=== PATIENT | male | born 2000 | race Caucasian/White ===

== ENCOUNTER 2021-02-10 23:35 | Emergency (ER) | payer SELFPAY ==
[~2021-02-10] VITALS: Ht 182.9 cm; Wt 111.1 kg
== END 2021-02-11 01:52 | disposition home or self-care (01) ==
LOC: ER 23:40
DX: R07.9 Chest pain, unspecified (principal)
CPT/HCPCS: 71045; 93005; 99282; U0002

== ENCOUNTER 2021-05-05 23:07 | Emergency (ER) | payer BC ==
[~2021-05-05] VITALS: Ht 182.9 cm; Wt 111.1 kg
[2021-05-05] MEDS ORDERED: LIDOCAINE HCL 1% LOCAL INJ 20 ML VIAL INJ STA (23:12)
[2021-05-05] MEDS ORDERED: IBUPROFEN 600 MG TAB PO STA (23:15)
[2021-05-05] MEDS ORDERED: HYDROCODONE/APAP 5MG-325MG TAB PO STA (23:54)
[2021-05-05] MEDS ORDERED: ACETAMINOPHEN-1 EAC4 PO (23:57)
== END 2021-05-06 00:51 | disposition home or self-care (01) ==
LOC: ER 23:14
DX: S62.334A Displaced fracture of neck of fourth metacarpal bone, right hand, initial encounter for closed fracture (principal); S62.316A Displaced fracture of base of fifth metacarpal bone, right hand, initial encounter for closed fracture; W22.09XA Striking against other stationary object, initial encounter; Y92.008 Other place in unspecified non-institutional (private) residence as the place of occurrence of the external cause
CPT/HCPCS: 29125; 73100; 73120; 99284; J2001